=== PATIENT | male | born 1985 | race Two or more races ===

== ENCOUNTER 2017-08-21 17:08 | Emergency (ER) | payer OTHER ==
--- NOTE | 2017-08-21 18:31 | EDPHY ---
H & P Time Seen by Provider: 08/21/17 18:16 HPI/ROS: CHIEF COMPLAINT: Itching rash x7 days HISTORY OF PRESENT ILLNESS: 32-year-old male generally healthy complaining of itching rash for the past 7 days. No pain. No intraoral lesions. No diarrhea. No ocular irritation. No fever or chills. No urinary complaints. No Abdominal pain. No genitalia rash or complaints. REVIEW OF SYSTEMS: A ten point review of systems was performed and is negative with the exception of the items mentioned in the HPI PAST MEDICAL & SURGICAL HISTORY: No pertinent medical or surgical history SOCIAL HISTORY: Nonsmoker PHYSICAL EXAM (Prior to examination, patient consented to physical exam, hands were washed and my usual and customary physical exam procedures followed) 1) GENERAL: Well-developed, well-nourished, alert and oriented. Appears to be in no acute distress. 2) HEAD: Normocephalic, atraumatic 3) HEENT: Pupils equal, round, reactive to light bilaterally. No injection Nasopharynx, oropharynx, clear, no lesions. 4) NECK: Full range of motion, no meningeal signs. 5) LUNGS: Clear auscultation bilaterally, no wheezes, no rhonchi, no retractions. 6) HEART: Regular rate and rhythm, no murmur, no heave, no gallop. 7) ABDOMEN: No guarding, no rebound, no focal tenderness, 8) MUSCULOSKELETAL: Moving all extremities, no focal areas of tenderness, no obvious trauma. No peripheral edema or discoloration. 9) BACK: No CVA tenderness, no midline vertebral tenderness, no fluctuance, no step-off, no obvious trauma, no visual or palpable abnormality. 10) SKIN: The patient's legs, arms he has multiple excoriated discrete lesions. These are nontender. They do not followed dermatomal distribution. There are not on his trunk. There is no signs of super infection. 11) Psychiatric: Patient is oriented X 3, there is no agitation. DIFFERENTIAL DIAGNOSIS: In no particular order include but limited to contact dermatitis, uremia, urticaria, or cellulitis. Smoking Status: Never smoked Constitutional: Initial Vital Signs Temperature (C) 37.3 C 06/16/18 17:13 Heart Rate 87 08/21/17 17:13 Respiratory Rate 16 08/21/17 17:13 Blood Pressure 128/83 H 08/21/17 17:13 O2 Sat (%) 98 08/21/17 17:13 Allergies/Adverse Reactions: No Known Allergies Allergy (Unverified 08/21/17 17:11) Home Medications: Medication Instructions Recorded predniSONE [Prednisone] 20 mg PO DAILY #15 tablet 08/21/17 MDM/Departure - [facility] ED Course/Re-evaluation: I think the patient's symptoms are more than likely secondary to contact dermatitis. He specifically inquired about scabies. He is low risk for scabies exposure. He has no signs of cellulitic super infection. I do not think antibiotics are indicated. I have recommended a course of steroids, H1 H2 blockers. Recommend he attempt to identify any potential allergens. Doubt uremia. Doubt Castano-Kike. He feels comfortable being discharged. I saw this patient independently based on established practice protocols. Care of patient under supervision of secondary supervising physician Dr Guerin . - Depart Disposition: Home, Routine, Self-Care Clinical Impression: Contact dermatitis Qualifiers: Contact dermatitis type: unspecified Contact dermatitis trigger: other trigger Qualified Code(s): L25.8 - Unspecified contact dermatitis due to other agents Condition: Good Instructions: Contact Dermatitis (ED) Prescriptions: predniSONE [Prednisone] 20 mg PO DAILY #15 tablet Referrals: Elliott Martinez MD [Medical Doctor] - 5-7 days, call for appt.
[2017-08-21 18:53] VITALS: BP 105/70
== END 2017-08-21 18:53 | disposition home or self-care (01) ==
DX: L25.8 Unspecified contact dermatitis due to other agents (principal)